=== PATIENT | female | born 1990 | race Caucasian/White ===

== ENCOUNTER → 2016-11-30 | Outpatient (CLI) | payer SELFPAY ==
--- NOTE | 2016-11-30 17:01 | WOMENS IMAGING REPORT ---
EXAM DESCRIPTION: U/S BREAST UNILAT LIMITED COMPLETED DATE/TIME: 11/30/2016 9:33 am REASON FOR STUDY: R BREAST ULTRASOUND N63 N63 UNSPECIFIED LUMP IN BREAST COMPARISON: No prior breast imaging TECHNIQUE: Real-time and static grayscale imaging performed of the left breast targeted to the area of clinical concern. Selected color Doppler images recorded. LIMITATIONS: None. FINDINGS: Patient describes a palpable abnormality at the 12 o'clock position left breast. Ultrasou nd of this area demonstrates a 6 x 4 mm simple cyst at the 12 o'clock position. There is also a 4 x 4 mm cyst at the 1 o'clock position. No solid lesions. No worrisome acoustic absorption. IMPRESSION: No suspicious findings detected by ultrasound. BIRAD: 2 Benign findings. RECOMMENDATION: RECOMMENDED FOLLOW-UP: Follow-up as clinically indicated. COMMENT: The [employer] (ACR) has developed recommendations for screening MRI of the breasts in certain patient populations, to be used in conjunction with mammography. Breast MRI s urveillance may be appropriate for women with more than 20% lifetime risk of developing breast cancer as determined by genetic testing, significant family history of the disease, or history of mantle r adiation for Hodgkins Disease. ACR Practice Guidelines 2008. TECHNICAL DOCUMENTATION: JOB ID: [id number] [employer] All Rights Reserved
== END ==
LOC: WI 09:20
DX: N60.02 Solitary cyst of left breast (principal)
CPT/HCPCS: 76642

== ENCOUNTER 2017-02-25 13:55 | Emergency (ER) | payer SELFPAY ==
--- NOTE | 2017-02-25 14:53 | ER Document Report ---
ED Medical Screen (RME) - General Chief Complaint: Abdominal Pain Stated Complaint: ABDOMINAL PAIN Time Seen by Provider: 02/25/17 14:52 Mode of Arrival: Ambulatory Information source: Patient Notes: 26-year-old female 2 para 2, last normal menstrual period January 19 presents to the emergency room with suprapubic discomfort, burning on urination , nausea. Symptoms started last night. She does report some low-grade fever. TRAVEL OUTSIDE OF THE [place] IN LAST 30 DAYS: No - Related Data Allergies/Adverse Reactions: No Known Allergies Allergy (Verified 02/25/17 14:03) Past Medical History - Social History Chew tobacco use (# tins/day): No Frequency of alcohol use: None Drug Abuse: None Renal/ Medical History: Denies: Hx Peritoneal Dialysis Surgical Hx: Negative - Immunizations Hx Diphtheria, Pertussis, Tetanus Vaccination: Yes History of Influenza Vaccine for 02/2017 - 07/2017 Season: No Physical Exam - Vital signs Vitals: Temp Pulse Resp BP Pulse Ox 98.6 F 86 16 115/61 100 02/25/17 14:03 02/25/17 14:03 02/25/17 14:03 02/25/17 14:03 02/25/17 14:03 Course - Vital Signs Vital signs: Temp Pulse Resp BP Pulse Ox 98.6 F 86 16 115/61 100 02/25/17 14:03 02/25/17 14:03 02/25/17 14:03 02/25/17 14:03 02/25/17 14:03
[2017-02-25 15:16] LABS: APPEARANCE,URINE CLEAR; BILIRUBIN,URINE SMALL (NEGATIVE); GLUCOSE, URINE NEGATIVE (NEGATIVE); KETONES,URINE TRACE mg/dL (NEGATIVE); LEUKOCYTE ESTERASE,URINE NEGATIVE (NEGATIVE); NITRITE,URINE POSITIVE (NEGATIVE); PROTEIN,URINE 30 mg/dL (NEGATIVE); URINE SPECIFIC GRAVITY 1.031
[2017-02-25 15:28] LABS: ABSOLUTE LYMPHOCYTES (AUTO) 1.7 10^3/uL (0.5-4.7); ABSOLUTE MONOCYTES (AUTO) 0.3 10^3/uL (0.1-1.4); ABSOLUTE NEUT (AUTO) 4.8 10^3/uL (1.7-8.2); BASOPHILS % (AUTO) 0.5 % (0-2); EOSINOPHILS % (AUTO) 0.7 % (0-6); HEMATOCRIT 42.2 % (36.0-47.0); HEMOGLOBIN 14.9 g/dL (12.0-15.5); HGB HCT DIFFERENCE 2.5; LYMPHOCYTES % (AUTO) 24.7 % (13-45); MEAN CORPUSCULAR HEMOGLOBIN 32.7 pg (27.0-33.4); MEAN CORPUSCULAR HGB CONC 35.4 g/dL (32.0-36.0); MEAN CORPUSCULAR VOLUME 92 fl (80-97); MONOCYTES % (AUTO) 4.8 % (3-13); RED BLOOD COUNT 4.56 10^6/uL (3.72-5.28); RED CELL DISTRIBUTION WIDTH 13.7 % (11.5-14.0); SEGMENTED NEUTROPHILS % (AUTO) 69.3 % (42-78); WHITE BLOOD COUNT 6.9 10^3/uL (4.0-10.5)
[2017-02-25 15:44] LABS: ALANINE AMINOTRANSFERASE 32 U/L (9-52); ALKALINE PHOSPHATASE 53 U/L (38-126); ANION GAP 13 (5-19); ASPARTATE AMINO TRANSFERASE 23 U/L (14-36); BILIRUBIN,DIRECT 0.3 mg/dL (0.0-0.4); BILIRUBIN,TOTAL 0.7 mg/dL (0.2-1.3); BLOOD UREA NITROGEN 9 mg/dL (7-20); CALCIUM 9.6 mg/dL (8.4-10.2); CARBON DIOXIDE 25 mmol/L (22-30); CHLORIDE 106 mmol/L (98-107); CREATININE RESULT 0.64 mg/dL (0.52-1.25); GLUCOSE 94 mg/dL (75-110); POTASSIUM 3.7 mmol/L (3.6-5.0); TOTAL PROTEIN 8.4 g/dL (6.3-8.2)
--- NOTE | 2017-02-25 18:14 | ER Document Report ---
ED GI/ <ZACK RUBIO - Last Filed: 02/25/17 18:19> - General Mode of Arrival: Ambulatory Information source: Patient TRAVEL OUTSIDE OF THE [place] IN LAST 30 DAYS: No - HPI Patient complains to provider of: Other - abdominal cramping <GISSELLE BROWN - Last Filed: 02/25/17 21:06> - General Chief Complaint: Abdominal Pain Stated Complaint: ABDOMINAL PAIN Time Seen by Provider: 02/25/17 14:52 Notes: Patient is a 26 year old female that presents to the emergency department today with complaints of abdominal cramping. Patient states she has had associated nausea with this. Patient states "I just want to make sure it is not my appendix". Patient states that she had a normal bowel movement yesterday. Patient states that he had a fever yesterday but denies any vomiting. (GISSELLE BROWN) - Related Data Allergies/Adverse Reactions: No Known Allergies Allergy (Verified 02/25/17 14:03) Past Medical History - General Information source: Patient - Social History Cigarette use (# per day): No Chew tobacco use (# tins/day): No Frequency of alcohol use: None Drug Abuse: None Lives with: Family Family History: Reviewed & Not Pertinent - Medical History Medical History: Negative Surgical Hx: Negative - Immunizations Hx Diphtheria, Pertussis, Tetanus Vaccination: Yes <GISSELLE BROWN - Last Filed: 02/25/17 21:06> Review of Systems - Review of Systems Constitutional: See HPI, Fever - yesterday EENT: No symptoms reported Cardiovascular: No symptoms reported Respiratory: No symptoms reported Gastrointestinal: See HPI, Abdominal pain, Nausea. denies: Vomiting Genitourinary: No symptoms reported Female Genitourinary: No symptoms reported Musculoskeletal: No symptoms reported Skin: No symptoms reported Hematologic/Lymphatic: No symptoms reported Neurological/Psychological: No symptoms reported -: Yes All other systems reviewed and negative <GISSELLE BROWN - Last Filed: 02/25/17 21:06> Physical Exam <ZACK RUBIO - Last Filed: 02/25/17 18:19> <GISSELLE BROWN - Last Filed: 02/25/17 21:06> - Vital signs Vitals: Temp Pulse Resp BP Pulse Ox 98.6 F 86 16 115/61 100 02/25/17 14:03 10/02/17 14:03 02/25/17 14:03 02/25/17 14:03 02/25/17 14:03 - Notes Notes: Physical Exam: General: Alert, appears well. HEENT: Normocephalic. Atraumatic. PERRL. Extraocular movements intact. Oropharynx clear. Neck: Supple. Non-tender. Respiratory: No respiratory distress. Clear and equal breath sounds bilaterally. Cardiovascular: Regular rate and rhythm. Abdominal: Minimal suprapubic tenderness with palpation. No distension. Normal Bowel Sounds. Back: Non-tender. No deformity or step off. Extremities: Moves all four extremities. Upper extremities: Normal inspection. Normal ROM. Lower extremities: Normal inspection. No edema. Normal ROM. Neurological: Normal cognition. AAOx4. Normal speech. Psychological: Normal affect. Normal Mood. Skin: Warm. Dry. Normal color. (GISSELLE BROWN) Course - Laboratory Result Diagrams: 02/25/17 15:10 02/25/17 15:10 <ZACK RUBIO - Last Filed: 02/25/17 18:19> - Laboratory Result Diagrams: 02/25/17 15:10 02/25/17 15:10 <GISSELLE BROWN - Last Filed: 02/25/17 21:06> - Re-evaluation Re-evalutation: 02/25/17 18:19 The CBC is unremarkable. The white blood cell count is low normal without shift. The urine is quite concentrated with 1 WBC and 2 epithelial cells and no bacteria. (ZACK RUBIO) - Vital Signs Vital signs: Temp Pulse Resp BP Pulse Ox 98.6 F 88 16 110/60 100 02/25/17 18:05 02/25/17 18:05 02/25/17 18:05 02/25/17 18:05 02/25/17 18:05 - Laboratory Laboratory results interpreted by me: 02/25/17 02/25/17 14:57 15:10 Total Protein 8.4 H Urine Protein 30 H Urine Ketones TRACE H Urine Nitrite POSITIVE H Urine Bilirubin SMALL H Urine Urobilinogen 4.0 H Urine Ascorbic Acid 40 H Discharge <ZACK RUBIO - Last Filed: 02/25/17 18:19> <GISSELLE BROWN - Last Filed: 02/25/17 21:06> - Discharge Clinical Impression: Pelvic cramping, Nausea Condition: Stable Disposition: HOME, SELF-CARE Additional Instructions: Pelvic Pain There are many causes of pain in the pelvic area. The cause could be the tubes, ovaries, uterus, intestines, appendix, pelvic muscles and connective tissue, or the urinary tract. The cause of your pelvic pain is not clear. However, it seems safe to treat you outside the hospital. If the pain sounds like a temporary problem, we sometimes wait to see if it goes away. Other patients may need additional tests, such as pelvic ultrasound or cultures. Conditions may change. Call us or come back for reexamination if any problems occur, such as: (1) Pain that becomes more severe, steady, or becomes concentrated in one specific area. Also, pain that is more severe with movement or coughing. (2) Vomiting that persists or becomes more frequent. (3) Blood in the vomitus, urine, or bowel movements. Blood in the stool may have a tarry or black appearance. (4) Shaking chills or fever greater than 100 degrees. (5) The abdomen becomes more distended or swollen. (6) Bowel movements cease. (7) Heavy vaginal bleeding. TAKE THE MEDICATION DISPENSED FOR NAUSEA IF NEEDED TONIGHT. DRINK PLENTY OF FLUIDS. REST. FOLLOW UP WITH A LOCAL MEDICAL DOCTOR IF NOT IMPROVING. RETURN TO THE EMERGENCY ROOM IF ANY NEW OR WORSENING SYMPTOMS. Sarah Attestation: 02/25/17 18:16 I personally performed the services described in the documentation, reviewed and edited the documentation which was dictated to the scribe in my presence, and it accurately records my words and actions. (ZACK RUBIO) Carsonibe Documentation - Scribe Written by Sarah:: Sarah Nettles, 02/25/2017 2106 acting as scribe for :: Nuno <GISSELLE BROWN - Last Filed: 02/25/17 21:06>
[2017-02-25] MEDS ORDERED: ONDANSETRON ODT 4 MG TAB (6 TAB/DSPK) PO PRN (18:17)
[2017-02-25 18:31] VITALS: BP 110/60
== END 2017-02-25 18:32 | disposition home or self-care (01) ==
LOC: ER 13:55
DX: R10.2 Pelvic and perineal pain (principal); R11.0 Nausea; R30.0 Dysuria
CPT/HCPCS: 36415; 80053; 81001; 84702; 85025; 99284

== ENCOUNTER 2017-02-27 21:15 | Emergency (ER) | payer SELFPAY ==
[2017-02-27 21:23] VITALS: BP 116/66
--- NOTE | 2017-02-27 22:57 | ER Document Report ---
ED Medical Screen (RME) - General Chief Complaint: Abdominal Pain Stated Complaint: ABDOMINAL PAIN Time Seen by Provider: 02/27/17 22:55 Notes: Patient is a 26-year-old female who returns emergency department complaining of suprapubic pain. Patient states that she was seen here 2 days ago and discharged home with [facility]. States that her pain as a constant pain in suprapubic area. States she does have a history of urinary tract infections. She is sexually active with a boyfriend and does not use condoms. Denies any vaginal discharge, vaginal pain. TRAVEL OUTSIDE OF THE [place] IN LAST 30 DAYS: No - Related Data Allergies/Adverse Reactions: No Known Allergies Allergy (Verified 02/27/17 22:50) Home Medications: Current Home Medications l-Norgest/E.estradiol-E.estrad [Seasonique 0.15-0.03-0.01 Tab] 1 each PO DAILY 02/27/17 [History] Past Medical History - Social History Chew tobacco use (# tins/day): No Frequency of alcohol use: None Drug Abuse: None Renal/ Medical History: Denies: Hx Peritoneal Dialysis Surgical Hx: Negative - Immunizations Hx Diphtheria, Pertussis, Tetanus Vaccination: Yes History of Influenza Vaccine for 02/2017 - 07/2017 Season: No Physical Exam - Vital signs Vitals: Temp Pulse Resp BP Pulse Ox 98.3 F 65 18 116/66 98 02/27/17 21:21 02/27/17 21:21 02/27/17 21:21 02/27/17 21:21 02/27/17 21:21 Course - Vital Signs Vital signs: Temp Pulse Resp BP Pulse Ox 98.3 F 65 18 116/66 98 02/27/17 21:21 02/27/17 21:21 02/27/17 21:21 02/27/17 21:21 02/27/17 21:21
[2017-02-27 23:24] LABS: APPEARANCE,URINE CLEAR; BILIRUBIN,URINE NEGATIVE (NEGATIVE); GLUCOSE, URINE NEGATIVE (NEGATIVE); KETONES,URINE NEGATIVE (NEGATIVE); LEUKOCYTE ESTERASE,URINE NEGATIVE (NEGATIVE); NITRITE,URINE NEGATIVE (NEGATIVE); PROTEIN,URINE NEGATIVE (NEGATIVE); URINE SPECIFIC GRAVITY 1.012
--- NOTE | 2017-02-28 00:16 | ER Document Report ---
ED General - General Chief Complaint: Abdominal Pain Stated Complaint: ABDOMINAL PAIN Time Seen by Provider: 02/27/17 22:55 Notes: Patient is a 26-year-old female without past medical history, no prior abdominal surgeries who presents with 3 days of intermittent abdominal cramping. Does describe it as a generalized abdominal pain that is cramping, moderate to severe in nature. Nothing improves or worsens her pain. Notes that she did have several episodes of nonbilious vomiting associated with this abdominal pain but has been able to tolerate oral intake throughout the day today. She has not seen her primary care doctor regarding today's concerns but was seen in the emergency department 2 days ago and had a reassuring evaluation at that time. States her symptoms have overall been unchanged since that time. She denies any focal right lower right upper quadrant abdominal pain. No vaginal bleeding or discharge. She is currently on control pills. She has not had similar symptoms in the past. TRAVEL OUTSIDE OF THE [place] IN LAST 30 DAYS: No - Related Data Allergies/Adverse Reactions: No Known Allergies Allergy (Verified 02/27/17 22:50) Home Medications: Current Home Medications l-Norgest/E.estradiol-E.estrad [Seasonique 0.15-0.03-0.01 Tab] 1 each PO DAILY 02/27/17 [History] Past Medical History - General Information source: Patient - Social History Smoking Status: Current Some Day Smoker Chew tobacco use (# tins/day): No Frequency of alcohol use: None Drug Abuse: None Lives with: Spouse/Significant other Family History: Reviewed & Not Pertinent Patient has suicidal ideation: No Patient has homicidal ideation: No Renal/ Medical History: Denies: Hx Peritoneal Dialysis Surgical Hx: Negative - Immunizations Hx Diphtheria, Pertussis, Tetanus Vaccination: Yes Review of Systems - Review of Systems Notes: Constitutional: Negative for fever. HENT: Negative for sore throat. Eyes: Negative for visual changes. Cardiovascular: Negative for chest pain. Respiratory: Negative for shortness of breath. Gastrointestinal: Positive for abdominal pain and vomiting Genitourinary: Negative for dysuria. Musculoskeletal: Negative for back pain. Skin: Negative for rash. Neurological: Negative for headaches, weakness or numbness. 10 point ROS negative except as marked above and in HPI. Physical Exam - Vital signs Vitals: Temp Pulse Resp BP Pulse Ox 98.3 F 65 18 116/66 98 02/27/17 21:21 02/27/17 21:21 02/27/17 21:21 02/27/17 21:21 02/27/17 21:21 Interpretation: Normal Notes: PHYSICAL EXAMINATION: GENERAL: Well-appearing, well-nourished and in no acute distress. HEAD: Atraumatic, normocephalic. EYES: Pupils equal round and reactive to light, extraocular movements intact, sclera anicteric, conjunctiva are normal. ENT: nares patent, oropharynx clear without exudates. Moist mucous membranes. NECK: Normal range of motion, supple without lymphadenopathy LUNGS: Breath sounds clear to auscultation bilaterally and equal. No wheezes rales or rhonchi. HEART: Regular rate and rhythm without murmurs ABDOMEN: Soft, nontender, normoactive bowel sounds. No guarding, no rebound. No masses appreciated. EXTREMITIES: Normal range of motion, no pitting or edema. No cyanosis. NEUROLOGICAL: No focal neurological deficits. Moves all extremities spontaneously and on command. PSYCH: Normal mood, normal affect. SKIN: Warm, Dry, normal turgor, no rashes or lesions noted. Course - Re-evaluation Re-evalutation: 02/28/17 00:14 Patient presents with generalized abdominal pain for the past 4 days unchanged but not resolved since she was last seen here in the emergency department. At that time her test was normal. Urinalysis unremarkable today. Abdominal exam is without any focal tenderness. Patient actually states "it does not hurt when people push on it it is just like it is cramping all the time ". Patient admits to an extensive history of constipation notes that she approximately has 2-3 bowel movements per week. On abdominal examination she has absolutely no tenderness to the right lower quadrant and no rebound or guarding in any location. No right upper quadrant tenderness. She has no suprapubic or adnexal tenderness. She denies vaginal bleeding or discharge. Her clinical history is not consistent with an acute appendicitis, ovarian torsion, tubo-ovarian abscess, pelvic inflammatory disease, biliary pathology, acute hepatitis, bowel obstruction, or mesenteric ischemia. I suspect patient may have extensive constipation. I will obtain a KUB to further assess. 02/28/17 01:18 KUB does show extensive constipation. Repeat abdominal exam continues to be without any focal abdominal tenderness, rebound or guarding. Patient remains without tachycardia, fever or any obvious distress. She has tolerated oral intake without difficulty. I have had a risks and benefits conversation with the patient regarding CT imaging of the abdomen and pelvis at this time. We discussed, based on today's exam and labs there is a possibility that they could have a diagnosis that could be better clarified by CT and that this could possibly spinning frame changer. We discussed the risks of radiation to the abdomen and pelvis. We discussed the alternative of close follow-up with their primary care physician for a recheck of the abdomen within 24 hours as well as reasons to return to the emergency department. After this conversation, the patient has elected to avoid CT imaging of the abdomen and pelvis at this time. They have capacity. They have verbalized the importance of close follow-up as well as reasons to return to the emergency department including worsening abdominal pain, fever, persistent vomiting, or any other symptoms that are worrisome to them. - Vital Signs Vital signs: Temp Pulse Resp BP Pulse Ox 98.3 F 65 18 116/66 98 02/27/17 21:21 02/27/17 21:21 02/27/17 21:21 02/27/17 21:21 02/27/17 21:21 - Laboratory Laboratory results interpreted by me: 02/27/17 23:00 Urine Urobilinogen 4.0 H Urine Ascorbic Acid 20 H - Diagnostic Test Radiology reviewed: Image reviewed, Reports reviewed Radiology results interpreted by me: 02/28/17 03:31 KUB abdomen: No evidence of obstruction or free air. Constipation is present. Discharge - Discharge Clinical Impression: Abdominal cramping Condition: Good Disposition: HOME, SELF-CARE Additional Instructions: You have been seen in the Emergency Department (ED) for abdominal pain. Your evaluation did not identify a clear cause of your symptoms but was generally reassuring. For your constipation: You should take 8 caps of MiraLAX and placed in 1 liter of Gatorade. Drink one half of the solution and wait 4 hours. If you do not have a bowel movement take the remaining half of the solution. Please follow up with your doctor as soon as possible regarding today's emergent visit and the symptoms that are bothering you. Return to the ED if your abdominal pain worsens or fails to improve, you develop bloody vomiting, bloody diarrhea, you are unable to tolerate fluids due to vomiting, fever greater than 101, or other symptoms that concern you. Forms: Return to Work
--- NOTE | 2017-02-28 00:49 | RADIOLOGY REPORT (SQ) ---
EXAM DESCRIPTION: KUB/ABDOMEN (SINGLE VIEW) CLINICAL HISTORY: 26 years, Female, generalized abdominal pain COMPARISON: None. NUMBER OF VIEWS: 1 TECHNIQUE: Generalized abdominal pain. Routine supine abdomen radiograph protocol. LIMITATIONS: None. FINDINGS: Large amount stool throughout the colon. No bowel obstruction or free peritoneal gas. No abnormal abdominal or pelvic calcifications. Bones appear normal. IMPRESSION: 1. Suspect constipation. No bowel obstruction or extraluminal bowel gas on this single view. 2011 [employer]- All Rights Reserved
== END 2017-02-28 01:25 | disposition home or self-care (01) ==
LOC: ER 21:15
DX: K21.9 Gastro-esophageal reflux disease without esophagitis (principal); R10.84 Generalized abdominal pain; R11.10 Vomiting, unspecified; F17.200 Nicotine dependence, unspecified, uncomplicated; Z79.3 Long term (current) use of hormonal contraceptives
CPT/HCPCS: 74000; 81001; 99284

== ENCOUNTER 2018-04-22 08:04 | Inpatient (IN) | payer MEDICAID ==
[2018-04-22] MEDS ORDERED: PENICILLIN G-K 5 MILLION UNIT VIAL ONE ×2 (08:11→12:24)
[2018-04-22] MEDS ORDERED: RINGERS SOLUTION,LACTATED 300 ML IV ONE (09:31)
[2018-04-22] MEDS ORDERED: RINGERS SOLUTION,LACTATED 1,000 ML IV PRN (09:31)
[2018-04-22] MEDS ORDERED: OXYTOCIN/NORMAL SALINE 20 UNIT/1,000 ML RTUINJ IV PRN ×2 (09:31→17:10)
[2018-04-22] MEDS ORDERED: NALBUPHINE HCL INJ 10 MG/1 ML AMPULE INJ ONE ×2 (10:41→11:23)
[2018-04-22] MEDS ORDERED: NALBUPHINE HCL INJ 10 MG/1 ML AMPULE ONE (10:43)
[2018-04-22] MEDS ORDERED: OXYTOCIN/NORMAL SALINE 20 UNIT/1,000 ML RTUINJ ONE (11:19)
[2018-04-22] MEDS ORDERED: OXYTOCIN 10 UNIT/ML VIAL ONE (11:19)
[2018-04-22] MEDS ORDERED: MISOPROSTOL 0.2 MG TABLET ONE (11:19)
[2018-04-22] MEDS ORDERED: LIDOCAINE 1% INJ-PF (10 MG/ML) 30 ML SDV ONE (11:19)
[2018-04-22] MEDS ORDERED: (PENDING PHARMACY ID) (Prenatal No122/Iron/Folic Acid [Prenatal Multi Tablet] 1 TAB) PO SCH (11:30)
[2018-04-22] MEDS ORDERED: PENICILLIN G POTASSIUM 5,000,000 UNIT in DEXTROSE 5%-WATER 100 ML IV ONE (12:36)
--- NOTE | 2018-04-22 12:52 | PDOC H&P ---
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 Varela Cardiac Medical History: Reports: None Pulmonary Medical History: Reports: None Family History Family History: Reviewed & Not Pertinent Parental Family History Reviewed: Yes Children Family History Reviewed: Yes Sibling(s) Family History Reviewed.: Yes Social History Smoking Status: Former Smoker Last Time Smoked: >5yrs ago Physical Exam Vital Signs: Intake & Output 04/21/18 04/22/18 04/23/18 06:59 06:59 06:59 Weight 97.8 kg General appearance: PRESENT: no acute distress Respiratory exam: PRESENT: clear to auscultation lela Cardiovascular exam: PRESENT: RRR Extremities exam: PRESENT: other - bilateral lower extremety edema Psychiatric exam: PRESENT: normal mood Impression/Plan Impression: IUP @ [id number] Plan: reviewed with Dr. Preston who is the MD acquisition specialist today. was able to place cook 's catheter and started low dose pit. Continue IOL at this time. First dose of penicillin given on admission, will continue every 4hrs until delivery. reassess as clinically indicated or earlier prn.
[2018-04-22 14:15] LABS: HEMATOCRIT 34.9 % (36.0-47.0); HEMOGLOBIN 12.4 g/dL (12.0-15.5); MEAN CORPUSCULAR HEMOGLOBIN 31.9 pg (27.0-33.4); MEAN CORPUSCULAR HGB CONC 35.5 g/dL (32.0-36.0); MEAN CORPUSCULAR VOLUME 90 fl (80-97); PLATELET COUNT 169 10^3/uL (150-450); RED BLOOD COUNT 3.89 10^6/uL (3.72-5.28); RED CELL DISTRIBUTION WIDTH 13.6 % (11.5-14.0); WHITE BLOOD COUNT 9.2 10^3/uL (4.0-10.5)
[2018-04-22] MEDS ORDERED: PHENYLEPHRINE HCL INJ/PF 10 MG/1 ML SDV ONE (14:21)
[2018-04-22] MEDS ORDERED: FENTANYL CITRATE INJ/PF 100 MCG/2 ML AMPUL ONE (14:21)
[2018-04-22] MEDS ORDERED: EPHEDRINE SULFATE INJ 50 MG/1 ML AMPULE ONE (14:21)
[2018-04-22] MEDS ORDERED: FENTANYL/BUPIVACAINE/NS/PF 300 MCG/150 ML RTUINJ EPI ONE (14:22)
[2018-04-22] MEDS ORDERED: BUPIVACAINE HCL 0.5 % INJ/PF 30 ML SDV ONE (14:22)
[2018-04-22 15:07] LABS: URINE AMPHETAMINES SCREEN NEGATIVE; URINE BARBITURATES SCREEN NEGATIVE; URINE BENZODIAZEPINES SCREEN NEGATIVE; URINE COCAINE SCREEN NEGATIVE; URINE MARIJUANA (THC) SCREEN NEGATIVE; URINE METHADONE SCREEN NEGATIVE; URINE PHENCYCLIDINE SCREEN NEGATIVE
[2018-04-22] MEDS ORDERED: PENICILLIN G POTASSIUM 2,500,000 UNIT in DEXTROSE 5%-WATER 50 ML IV SCH (16:37)
[2018-04-22] MEDS ORDERED: GLYCERIN/WITCH HAZEL LEAF 1 EACH MED..PAD TP PRN (17:10)
[2018-04-22] MEDS ORDERED: ACETAMINOPHEN 325 MG TABLET PO PRN (17:10)
[2018-04-22] MEDS ORDERED: MEASLES,MUMPS&RUBELLA VACC/PF 0.5 ML VIAL SUBCUT PRN (17:10)
[2018-04-22] MEDS ORDERED: DIPH/PERTUSS(ACELL)/TETANUS VAC/PF 0.5 ML SYR (>=10YO) IM PRN (17:10)
[2018-04-22] MEDS ORDERED: ZOLPIDEM TARTRATE 5 MG TABLET PO PRN (17:10)
[2018-04-22] MEDS ORDERED: PROMETHAZINE HCL 25 MG TABLET PO PRN (17:10)
[2018-04-22] MEDS ORDERED: ACETAMINOPHEN WITH CODEINE #3 TABLET PO PRN (17:10)
[2018-04-22] MEDS ORDERED: MAGNESIUM HYDROXIDE SUSP 30 ML UDCUP PO PRN (17:10)
[2018-04-22] MEDS ORDERED: PSEUDOEPHEDRINE HCL 30 MG TABLET PO PRN (17:10)
[2018-04-22] MEDS ORDERED: PROMETHAZINE HCL INJ 25 MG/1 ML VIAL IV PRN (17:10)
[2018-04-22] MEDS ORDERED: NA PHOS,M-B/NA PHOS,DI-BA (ADULT) 133 ML ENEMA PR PRN (17:10)
[2018-04-22] MEDS ORDERED: DIBUCAINE 1% OINTMENT 28 GM TP PRN (17:10)
[2018-04-22] MEDS ORDERED: PROMETHAZINE HCL 25 MG SUPP.RECT PR PRN (17:10)
[2018-04-22] MEDS ORDERED: BENZOCAINE/MENTHOL AEROSOL SPRAY 56 ML TOP PRN (17:10)
[2018-04-22] MEDS ORDERED: DIPHENHYDRAMINE HCL 25 MG CAPSULE PO PRN (17:10)
--- NOTE | 2018-04-22 19:32 | Delivery Summary ---
Del Sum A-C Datetime Report Generated by CPN: 04/22/2018 19:31 DELIVERY PERSONNEL DELIVERY PERSONNEL: [id number] Delivery Doctor:: Rina Preston MD Labor and Delivery Nurse:: Reagan Atkinson RN (Annotations: Data stored by CPN on behalf of user) Labor and Delivery Nurse:: Queenie Becerril RN Diesel Engine Engineer/VEGETABLE GROWER: [facility] (Annotations: Data stored by CPN on behalf of user) MATERNAL INFORMATION Delivery Anesthesia: Epidural Medications After Delivery: Pitocin Drip 20 Units/1000ml NSS Maternal Complications: None Provider Comments: VMI delivered in CHRISTIN presentation. No nuchal cord. Shoulders and body delivered without difficulty. Cord doubly clamped and cut. to maternal abd for NRP. Placenta delivered intact spontaneously. FF at U. No perineal lacerations. Good hemostasis. Mother and baby stable upon provider leaving the room. LABOR SUMMARY EDC: 04/18/2018 00:00 No. Babies in Womb: 1 Attempted: No Labor Anesthesia: Epidural LABOR INFORMATION Reason for Induction: Post Dates Onset of Labor: 04/22/2018 13:00 Complete Dilatation: 04/22/2018 16:12 Cervical Ripening Agents: Johnson Balloon Oxytocin: Induction Group B Beta Strep: Positive Antibiotics # of Doses: 2 Antibiotics Time of Last Dose: 1244 Name of Antibiotic Given: PCN Steroids Given: None Reason Steroids Not Administered: Not Applicable MEMBRANES Membranes Rupture Method: Spontaneous Rupture of Membranes: 04/22/2018 13:00 Length of Rupture (hr): 3.82 Amniotic Fluid Color: Clear Amniotic Fluid Amount: Moderate Amniotic Fluid Odor: Normal STAGES OF LABOR Stage 1 hr: 3 Stage 1 min: 12 Stage 2 hr: 0 Stage 2 min: 37 Stage 3 hr: 0 Stage 3 min: 3 Total Time in Labor hr: 3 Total Time in Labor min: 52 VAGINAL DELIVERY Episiotomy: None Laceration #1: None Laceration Extension #1: N/A Laceration Repair: Not Applicable Sponge Count Correct: Yes Sharps Count Correct: Yes CSECTION DELIVERY Primary Indication: N/A Secondary Indication: N/A CSection Incidence: N/A Labor: N/A Elective: N/A CSection Incision: N/A BABY A INFORMATION Infant Delivery Date/Time: 04/22/2018 16:49 Method of Delivery: Vaginal Born in Route : No : N/A Forceps: N/A Vacuum Extraction: N/A Shoulder Dystocia : No PRESENTATION/POSITION BABY A Presentation: Cephalic Cephalic Presentation: Vertex Vertex Position: Right Occipital Anterior Breech Presentation: N/A PLACENTA INFORMATION BABY A Placenta Delivery Time : 04/22/2018 16:52 Placenta Method of Delivery: Spontaneous Placenta Status: Delivered SCORES BABY A Heart Rate 1 min: >100 bpm Resp Effort 1 min: Good Cry Reflex Irritability 1 min: Cough or Sneeze or Pulls Away Muscle Tone 1 min: Active Motion Color 1 min: Body Schwana, Extremities Blue Resuscitation Effort 1 min: Tactile Stimulation SCORE 1 MIN: 9 Heart Rate 5 min: >100 bpm Resp Effort 5 min: Good Cry Reflex Irritability 5 min: Cough or Sneeze or Pulls Away Muscle Tone 5 min: Active Motion Color 5 min: Body Schwana, Extremities Blue Resuscitation Effort 5 min: Tactile Stimulation SCORE 5 MIN: 9 INFORMATION BABY A Gestational Age at Delivery: 40.4 Gestational Status: Full Term- 39- 40.6 Weeks Infant Outcome : Liveborn Condition : Stable Sex: Male IDENTIFICATION BABY A Verification Date/Time: 04/22/2018 17:18 ID Band Number: [id number] Mother's Name Verified: Yes Infant RN Verifying : jozard RN, R Ian RN WEIGHT/LENGTH BABY A Birthweight (gm): 3900 Infant Weight (lb): 8 Weight (oz): 10 Infant Length (in): 21.25 Infant Length (cm): 53.98 CORD INFORMATION BABY A No. Cord Vessels: 3 Nuchal Cord : N/A Cord Blood Taken: Yes-For Eval (Mom's Blood Type - or O+) Suction: Mouth ASSESSMENT BABY A Infant Complications: None Physical Findings at Delivery: Within Normal Limits Infant Respirations: Appears Normal Skin to Skin: Yes Transit Mixer Driver/ALS Called : No Infant Care By: S Sherman, RN Transferred To: Remains with Mother BABY B INFORMATION : N/A SIGNATURES Signature: with User ID: [email or web address]
[2018-04-22] MEDS: MISOPROSTOL 0.1 MG TABLET PV SCH (21:53)
[2018-04-22] MEDS: DOCUSATE SODIUM 100 MG CAPSULE PO SCH (21:54)
[2018-04-22] MEDS: IBUPROFEN 800 MG TABLET PO SCH (21:54)
[2018-04-22] MEDS: FAMOTIDINE 20 MG TABLET PO SCH (21:54)
[2018-04-22] MEDS: FERROUS SULFATE 325 MG TABLET PO SCH (21:54)
[2018-04-23] MEDS: ACETAMINOPHEN WITH CODEINE #3 TABLET PO PRN ×3 (00:27→17:28)
[2018-04-23] MEDS: IBUPROFEN 800 MG TABLET PO SCH ×3 (05:27→21:26)
[2018-04-23 07:44] LABS: HEMATOCRIT 31.6 % (36.0-47.0); HEMOGLOBIN 11.2 g/dL (12.0-15.5); MEAN CORPUSCULAR HEMOGLOBIN 32.3 pg (27.0-33.4); MEAN CORPUSCULAR HGB CONC 35.4 g/dL (32.0-36.0); MEAN CORPUSCULAR VOLUME 91 fl (80-97); PLATELET COUNT 145 10^3/uL (150-450); RED BLOOD COUNT 3.47 10^6/uL (3.72-5.28); RED CELL DISTRIBUTION WIDTH 13.5 % (11.5-14.0); WHITE BLOOD COUNT 10.5 10^3/uL (4.0-10.5)
[2018-04-23] MEDS ORDERED: PRENATAL VITAMIN W DHA CAPSULE PO SCH (10:00)
--- NOTE | 2018-04-23 10:15 | PDOC PROGRESS REPORT ---
Subjective-OB Progress Note for:: 04/23/18 Subjective: 27yo G3 now P3 s/p ppd1. Pt. ambulating, voiding and breastfreeding without difficulties. Pain well controlled with meds. Denies concerns today. Physical Exam (OB) Vital Signs: Temp Pulse Resp BP Pulse Ox 98.1 F 83 20 100/55 L 100 04/23/18 07:37 04/23/18 07:37 04/23/18 07:37 04/23/18 07:37 04/23/18 07:37 Intake & Output 04/22/18 04/23/18 04/24/18 06:59 06:59 06:59 Intake Total 1000 Balance 1000 Weight 97.8 kg - General General Appearance: Appears well In distress: None - PIH/Pre-Eclampsia Headache: Absent Epigastric Pain: No Visual Changes: No - Episiotomy/Laceration Site Condition: N/A - Lochia Lochia Amount: Small 10-25 ml Lochia Color: Rubra/Red - Abdomen Description: Tender, Soft Hernia Present: No Fundal Description: Firm, Midline Fundal Height: u/u - u/2 - Respiratory Respiratory Status: No respiratory distress - Extremities Upper extremity: Normal inspection Lower extremities: Normal inspection - Psychological Associated symptoms: Normal affect, Normal mood Objective-Diagnostic Laboratory: 04/23/18 07:09 04/22/18 04/22/18 04/23/18 13:50 13:50 07:09 WBC 9.2 10.5 RBC 3.89 3.47 L Hgb 12.4 11.2 L Hct 34.9 L 31.6 L MCV 90 91 MCH 31.9 32.3 MCHC 35.5 35.4 RDW 13.6 13.5 Plt Count 169 145 L Blood Type A NEGATIVE Antibody Screen NEGATIVE Assessment and Plan(PN) - Assessment and Plan (1) Obesity affecting in third trimester Is this a current diagnosis for this admission?: Yes Plan: delivered (2) GBS (group B Streptococcus carrier), +RV culture, currently Is this a current diagnosis for this admission?: Yes Plan: two doses of antibiotics given prior to delivery. (3) Qualifiers: Weeks of gestation: 40 weeks Qualified Code(s): Z3A.40 - 40 weeks gestation of Is this a current diagnosis for this admission?: Yes Plan: delivered (4) Vaginal delivery Is this a current diagnosis for this admission?: Yes Plan: Routine pp care - Time Spent with Patient Time with patient: Less than 15 minutes Medications reviewed and adjusted accordingly: Yes - Disposition Anticipated Discharge: Home Within: within 24 hours
[2018-04-23] MEDS: PRENATAL VITAMIN W DHA CAPSULE PO SCH (10:25)
[2018-04-23] MEDS: SENNOSIDES/DOCUSATE 8.6-50 MG 1 EACH TABLET PO SCH (10:26)
[2018-04-23] MEDS: DOCUSATE SODIUM 100 MG CAPSULE PO SCH ×2 (10:26→17:27)
[2018-04-23] MEDS: FAMOTIDINE 20 MG TABLET PO SCH ×2 (10:26→21:26)
[2018-04-23] MEDS: FERROUS SULFATE 325 MG TABLET PO SCH ×2 (10:26→17:28)
[2018-04-24] MEDS: ACETAMINOPHEN WITH CODEINE #3 TABLET PO PRN ×2 (01:34→11:38)
[2018-04-24] MEDS: IBUPROFEN 800 MG TABLET PO SCH ×2 (05:11→13:51)
[2018-04-24 08:48] VITALS: BP 109/58
[2018-04-24] MEDS: FERROUS SULFATE 325 MG TABLET PO SCH (09:45)
[2018-04-24] MEDS: PRENATAL VITAMIN W DHA CAPSULE PO SCH (09:45)
[2018-04-24] MEDS: DOCUSATE SODIUM 100 MG CAPSULE PO SCH (09:45)
[2018-04-24] MEDS: FAMOTIDINE 20 MG TABLET PO SCH (09:45)
[2018-04-24] MEDS: SENNOSIDES/DOCUSATE 8.6-50 MG 1 EACH TABLET PO SCH (09:45)
--- NOTE | 2018-04-24 10:51 | PDOC DISCHARGE SUMMARY ---
Final Diagnosis Discharge Date: 04/24/18 - Final Diagnosis (1) GBS (group B Streptococcus carrier), +RV culture, currently Is this a current diagnosis for this admission?: Yes (2) Obesity affecting in third trimester Is this a current diagnosis for this admission?: Yes (3) Vaginal delivery Is this a current diagnosis for this admission?: Yes Discharge Data - Discharge Medication Prescriptions: Ibuprofen [Motrin 800 mg Tablet] 800 mg PO Q8HP PRN #60 tablet PRN Reason: Home Medications: No122/Iron/Folic Acid [ Multi Tablet] 1 tab PO DAILY 04/22/18 Ibuprofen [Motrin 800 mg Tablet] 800 mg PO Q8HP PRN #60 tablet 04/24/18 Procedures: NST Intrapartum Procedure(s): Spontaneous Vaginal Delivery - Diagnosis Test Laboratory: Temp Pulse Resp BP Pulse Ox 98.1 F 78 18 109/58 L 96 04/24/18 07:30 04/24/18 07:30 04/24/18 07:30 04/24/18 07:30 04/24/18 07:30 04/22/18 04/22/18 04/23/18 08:15 13:50 07:09 RBC 3.89 3.47 L Hgb 12.4 11.2 L Hct 34.9 L 31.6 L Urine Opiates Screen NEGATIVE - Discharge information/Instructions Discharge Activity: Balance Activity w/Rest, Pelvic Rest Discharge Diet: Regular Disposition: HOME, SELF-CARE Follow up with: [facility] in: 4, Weeks
== END 2018-04-24 14:05 | disposition home or self-care (01) | DRG 807 ==
LOC: LR 08:04 → 2S 19:50
PROVIDERS: ADMIT Student in an Organized Health Care Education/Training Program; ATTEND Student in an Organized Health Care Education/Training Program
PROC: 10E0XZZ Delivery of Products of Conception, External Approach (ICD-10-PCS; principal; 2018-04-22)
PROC: 3E033VJ Introduction of Other Hormone into Peripheral Vein, Percutaneous Approach (ICD-10-PCS; 2018-04-22)
PROC: 4A1HXCZ Monitoring of Products of Conception, Cardiac Rate, External Approach (ICD-10-PCS; 2018-04-22)
PROC: 3E0234Z Introduction of Serum, Toxoid and Vaccine into Muscle, Percutaneous Approach (ICD-10-PCS; 2018-04-23)
DX: O99.824 Streptococcus B carrier state complicating childbirth (principal); Z37.0 Single live birth; O26.893 Other specified pregnancy related conditions, third trimester; O99.214 Obesity complicating childbirth; E66.9 Obesity, unspecified; O48.0 Post-term pregnancy; Z67.11 Type A blood, Rh negative; Z3A.40 40 weeks gestation of pregnancy
CPT/HCPCS: 36415; 80307; 85027; 85461; 86592; 86850; 86900; 86901; 94760; C1726; J2300; J2370; J2540; J2590; J2790; J3010; J3490